=== PATIENT | male | born 1960 | race Caucasian/White ===

== ENCOUNTER → 2020-12-22 | Outpatient (CLI) | payer BC ==
[~2020-12-22] MED LIST: VASOTEC20 MG PO
== END ==
LOC: COL.VAS 11:46
DX: I10 Essential (primary) hypertension (principal); R42 Dizziness and giddiness; I36.1 Nonrheumatic tricuspid (valve) insufficiency; I35.0 Nonrheumatic aortic (valve) stenosis; I51.7 Cardiomegaly